=== PATIENT | male | born 1975 | race Caucasian/White ===

== ENCOUNTER 2016-07-19 09:51 | Emergency (ER) | payer OTHER | END 2016-07-19 11:45 | disposition home or self-care (01) | LOC: ER 09:51 | DX: M51.36 Other intervertebral disc degeneration, lumbar region (principal); M51.34 Other intervertebral disc degeneration, thoracic region; G89.29 Other chronic pain; M54.9 Dorsalgia, unspecified; G95.20 Unspecified cord compression; Z79.899 Other long term (current) drug therapy ==